=== PATIENT | female | born 1990 | race Native Hawaiian/Other Pacific Islander ===

== ENCOUNTER 2016-08-11 18:17 | Observation (INO) | payer OTHER ==
[~2016-08-11] VITALS: Ht 162.6 cm; Wt 53.1 kg
[~2016-08-11 18:17] MED LIST: FOLI1TAB26 PO; PRENATAL1 T10 PO; PROM25TA52 PO
[2016-08-11 18:50] VITALS: BP 115/69; TEMP 98; Ht 162.6 cm; Wt 53.1 kg
[2016-08-11 19:49] LABS: PLATELET COUNT 166 K/uL (152-353)
[2016-08-11 20:00] VITALS: BP 109/43; TEMP 98
[2016-08-11 20:13] LABS: POTASSIUM 3.4 mmol/L (3.6-5.2); SODIUM 137 mmol/L (136-145)
[2016-08-12] VITALS: BP 109/55; TEMP 98.1
== END 2016-08-12 00:50 | disposition other institution (70) ==
LOC: ICU 18:17
PROVIDERS: ADMIT Family Medicine
DX: S61.511A Laceration without foreign body of right wrist, initial encounter (principal); X78.8XXA Intentional self-harm by other sharp object, initial encounter; Y93.89 Activity, other specified; Y92.89 Other specified places as the place of occurrence of the external cause
CPT/HCPCS: 80053; 80307; 80320; 80329; 81000; 85027; 99220; G0378; G0379; G0479

== ENCOUNTER 2017-10-03 15:58 | Outpatient (CLI) | payer OTHER ==
[2017-10-03 16:16] LABS: PLATELET COUNT 167 K/uL (152-353)
== END 2017-10-03 22:58 | disposition home or self-care (01) ==
LOC: RAD 15:58
PROVIDERS: Family Medicine
DX: R07.89 Other chest pain (principal); M54.2 Cervicalgia
CPT/HCPCS: 36415; 80053; 81000; 82550; 83735; 84436; 84439; 84484; 85027; 93005

== ENCOUNTER 2017-12-25 14:59 | Emergency (ER) | payer OTHER ==
[~2017-12-25] VITALS: Ht 162.6 cm; Wt 52.2 kg
[2017-12-25 15:00] VITALS: TEMP 99
[2017-12-25 15:53] LABS: PLATELET COUNT 222 K/uL (152-353)
[2017-12-25 15:58] LABS: POTASSIUM 3.3 mmol/L (3.6-5.2)
[2017-12-25 18:58] VITALS: BP 116/72
== END 2017-12-25 18:59 | disposition home or self-care (01) ==
LOC: ED 14:59
PROC: 0HQ1XZZ Repair Face Skin, External Approach (ICD-10-PCS; principal; 2017-12-25)
DX: S00.83XA Contusion of other part of head, initial encounter (principal); M54.5 Low back pain; S16.1XXA Strain of muscle, fascia and tendon at neck level, initial encounter; S01.112A Laceration without foreign body of left eyelid and periocular area, initial encounter; R07.89 Other chest pain; V49.40XA Driver injured in collision with unspecified motor vehicles in traffic accident, initial encounter; Y92.89 Other specified places as the place of occurrence of the external cause
CPT/HCPCS: 80053; 81000; 85027; 96374; 99284; J1885

== ENCOUNTER → 2017-12-25 | Outpatient (CLI) | payer OTHER | END | disposition short-term general hospital (02) | LOC: AMB 14:38 | DX: M54.89 Other dorsalgia (principal); V49.9XXA Car occupant (driver) (passenger) injured in unspecified traffic accident, initial encounter; Y93.89 Activity, other specified; Y92.89 Other specified places as the place of occurrence of the external cause; Y99.8 Other external cause status | CPT/HCPCS: A0425; A0427 ==

== ENCOUNTER 2022-06-29 14:31 | Emergency (ER) | payer OTHER ==
[~2022-06-29] VITALS: Ht 162.6 cm; Wt 63.5 kg
[2022-06-29 14:34] VITALS: BP 102/50; TEMP 98.3
== END 2022-06-29 16:18 | disposition home or self-care (01) ==
LOC: ED 14:31
DX: M25.512 Pain in left shoulder (principal)
CPT/HCPCS: 81025; 99283

== ENCOUNTER 2022-08-20 02:49 | Emergency (ER) | payer OTHER ==
[~2022-08-20] VITALS: Ht 162.6 cm; Wt 739.4 kg
[2022-08-20 02:50] VITALS: TEMP 98.1
[2022-08-20 03:45] VITALS: BP 121/74
== END 2022-08-20 03:45 | disposition home or self-care (01) ==
LOC: ED 02:49
DX: S05.02XA Injury of conjunctiva and corneal abrasion without foreign body, left eye, initial encounter (principal); S05.01XA Injury of conjunctiva and corneal abrasion without foreign body, right eye, initial encounter; W89.8XXA Exposure to other man-made visible and ultraviolet light, initial encounter; Y92.89 Other specified places as the place of occurrence of the external cause
CPT/HCPCS: 96372; 99283; J1885

== ENCOUNTER 2022-09-04 19:57 | Emergency (ER) | payer OTHER ==
[~2022-09-04] VITALS: Ht 162.6 cm; Wt 59.0 kg
[2022-09-04 20:00] VITALS: BP 116/68; TEMP 98.7
== END 2022-09-04 20:55 | disposition home or self-care (01) ==
LOC: ED 19:57
DX: M25.562 Pain in left knee (principal); Z87.81 Personal history of (healed) traumatic fracture
CPT/HCPCS: 96372; 99282; J1100; J1885

== ENCOUNTER 2023-01-15 00:50 | Emergency (ER) | payer OTHER ==
[2023-01-15 01:12] LABS: PLATELET COUNT 170 K/uL (152-353)
[2023-01-15 01:28] LABS: POTASSIUM 3.4 mmol/L (3.6-5.2)
[2023-01-15 02:15] VITALS: BP 104/64; TEMP 97.5
== END 2023-01-15 02:15 | disposition home or self-care (01) ==
LOC: ED 00:50
PROVIDERS: Family Medicine
DX: R56.9 Unspecified convulsions (principal); F10.129 Alcohol abuse with intoxication, unspecified; Z87.891 Personal history of nicotine dependence
CPT/HCPCS: 80053; 80307; 80320; 81002; 85027; 96360; 99284